=== PATIENT | female | born 2000 | race Caucasian/White ===

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

== ENCOUNTER 2018-01-07 16:05 | Emergency (ER) | payer MEDICAID ==
[~2018-01-07] VITALS: Ht 157.5 cm; Wt 68.5 kg
[2018-01-07 16:05] VITALS: BP_SYST 131
[~2018-01-07 16:05] MED LIST: DILT60TA3 PO; FURO-150 PO
[2018-01-07] MEDS ORDERED: KETOROLAC TROMETHAMINE 60 MG/2 ML VIAL IM ONE (16:30)
[2018-01-07 17:01] VITALS: BP_SYST 121
== END 2018-01-07 17:01 | disposition home or self-care (01) ==
LOC: SED 16:05
DX: N64.4 Mastodynia (principal); R03.0 Elevated blood-pressure reading, without diagnosis of hypertension; J45.909 Unspecified asthma, uncomplicated
CPT/HCPCS: 81025; 93005; 96372; 99283; J1885

== ENCOUNTER 2018-01-19 11:49 | Emergency (ER) | payer MEDICAID ==
[~2018-01-19] VITALS: Ht 157.5 cm; Wt 68.0 kg
[2018-01-19 11:52] VITALS: BP_SYST 127
[2018-01-19 12:45] VITALS: BP_SYST 111
== END 2018-01-19 12:45 | disposition home or self-care (01) ==
LOC: SED 11:49
DX: M77.8 Other enthesopathies, not elsewhere classified (principal); J45.909 Unspecified asthma, uncomplicated; R03.0 Elevated blood-pressure reading, without diagnosis of hypertension
CPT/HCPCS: 99284

== ENCOUNTER 2018-02-24 18:13 | Emergency (ER) | payer MEDICAID ==
[~2018-02-24] VITALS: Ht 157.5 cm; Wt 69.9 kg
[2018-02-24 18:32] VITALS: BP_SYST 94
[2018-02-24] MEDS ORDERED: IBUPROFEN 800 MG TABLET PO ONE (19:15)
[2018-02-24 19:34] VITALS: BP_SYST 100
== END 2018-02-24 19:34 | disposition home or self-care (01) ==
LOC: SED 18:13
DX: S99.922A Unspecified injury of left foot, initial encounter (principal); W23.1XXA Caught, crushed, jammed, or pinched between stationary objects, initial encounter; Y93.89 Activity, other specified; Y92.89 Other specified places as the place of occurrence of the external cause; Y99.8 Other external cause status; J45.909 Unspecified asthma, uncomplicated
CPT/HCPCS: 99284

== ENCOUNTER 2018-07-13 16:36 | Emergency (ER) | payer MEDICAID ==
[~2018-07-13] VITALS: Ht 157.5 cm; Wt 59.0 kg
[2018-07-13 16:48] VITALS: BP_SYST 114
--- NOTE | 2018-07-13 16:52 | NUR ---
Patient triaged and placed in waiting room. VSS and patient appears in no acute distress at this time. Accompanied by self, awaiting available bed, and MD notified of need for MSE.
--- NOTE | 2018-07-13 18:57 | NUR ---
Patient to ER bed 05 to gown for evaluation. Side rails up. Report given to MARCEL JUÁREZ.
--- NOTE | 2018-07-13 18:58 | NUR ---
Pt AAOx4 ambulated into ED c/o L ear pain/congestion x 1 week. Pt recently recovered from a cold. No discharge noted. No other injuries/complaints per pt/noted. Will continue to monitor.
--- NOTE | 2018-07-13 18:59 | NUR ---
ER at bedside examining patient.
[2018-07-13 19:11] VITALS: BP_SYST 109
--- NOTE | 2018-07-13 19:11 | NUR ---
Patient given written and verbal discharge instructions and verbalizes understanding. ER MD DONALDSON discussed with patient the results and treatment provided. Patient in stable condition. ID arm band removed. Rx of CIPRODEX given. Patient educated on pain management and to follow up with PMD. Pain Scale 0. Opportunity for questions provided and answered. Medication side effect fact sheet provided.
== END 2018-07-13 19:11 | disposition home or self-care (01) ==
LOC: SED 16:36
DX: H60.92 Unspecified otitis externa, left ear (principal); J45.909 Unspecified asthma, uncomplicated
CPT/HCPCS: 99283

== ENCOUNTER 2019-02-02 13:14 | Emergency (ER) | payer MEDICAID ==
[~2019-02-02] VITALS: Ht 157.5 cm; Wt 68.0 kg
[2019-02-02 13:40] VITALS: BP_SYST 121
--- NOTE | 2019-02-02 13:45 | NUR ---
Patient triaged and placed in waiting room. VSS and patient appears in no acute distress at this time. Accompanied by family, awaiting available bed, and MD notified of need for MSE.
--- NOTE | 2019-02-02 14:11 | NUR ---
DUTCH Ross evaluating pt at this time.
--- NOTE | 2019-02-02 14:11 | NUR ---
Ambulatory to critical [facility] hospital chair 1
[2019-02-02] MEDS ORDERED: PREDNISONE 20 MG TABLET PO ONE (14:15)
[2019-02-02] MEDS ORDERED: IBUPROFEN 600 MG TABLET PO ONE (14:15)
[2019-02-02] MEDS ORDERED: PENICILLIN G BENZATHINE 1.2 MMU/2 ML SYR IM ONE (14:15)
--- NOTE | 2019-02-02 14:56 | NUR ---
Medicated per [employer] orders. No adverse reactions. Tolerated well
[2019-02-02 15:15] VITALS: BP_SYST 121
--- NOTE | 2019-02-02 15:15 | NUR ---
Patient given written and verbal discharge instructions and verbalizes understanding. ER MD discussed with patient the results and treatment provided. Patient in stable condition. ID arm band removed. Rx Motrin, prednisone given. Patient educated on pain management and to follow up with PMD. Pain Scale 5/10, will continue to rest at home. Opportunity for questions provided and answered. Medication side effect fact sheet provided.
== END 2019-02-02 15:15 | disposition home or self-care (01) ==
LOC: SED 13:14
DX: J02.9 Acute pharyngitis, unspecified (principal); R03.0 Elevated blood-pressure reading, without diagnosis of hypertension; J45.909 Unspecified asthma, uncomplicated
CPT/HCPCS: 86403; 87081; 96372; 99283; J0561; J7512; 36415

== ENCOUNTER 2019-10-17 07:13 | Emergency (ER) | payer MEDICAID ==
[~2019-10-17] VITALS: Ht 157.5 cm; Wt 68.0 kg
[2019-10-17 07:13] VITALS: BP_SYST 113
--- NOTE | 2019-10-17 07:13 | NUR ---
BROUGHT BACK TO BED #4 AND TRIAGED. REPORT GIVEN TO RADHA
--- NOTE | 2019-10-17 07:40 | NUR ---
Patient walked in c/o pain while urinating and frequency x2 weeks. Patient denies nausea and vomiting. Patient states no fever. Patient presents afebrile, AAOx4. Patient has no significant medical history, wear glasses and is hard of hearing on left ear. No acute s/s of acute distress noted. will continue to monitor.
--- NOTE | 2019-10-17 07:45 | NUR ---
ER at bedside examining patient.
[2019-10-17] MEDS ORDERED: SULFAMETHOXAZOLE/TRIMETHOPR DS 1 TABLET PO ONE (08:15)
[2019-10-17] MEDS ORDERED: PHENAZOPYRIDINE HCL 100 MG TABLET PO ONE (08:15)
[2019-10-17 08:47] VITALS: BP_SYST 114
--- NOTE | 2019-10-17 08:47 | NUR ---
Patient given written and verbal discharge instructions and verbalizes understanding. ER MD discussed with patient the results and treatment provided. Patient in stable condition. ID arm band removed. Rx of bactrim and pyridium given. Patient educated on pain management and to follow up with PMD. Pain Scale 0/10. Opportunity for questions provided and answered. Medication side effect fact sheet provided.
== END 2019-10-17 08:47 | disposition home or self-care (01) ==
LOC: SED 07:13
DX: N39.0 Urinary tract infection, site not specified (principal); J45.909 Unspecified asthma, uncomplicated
CPT/HCPCS: 81002; 81025; 99283

== ENCOUNTER → 2022-06-09 | Emergency (ER) | payer OTHER, MEDICAID ==
[~2022-06-09] VITALS: Ht 160 cm; Wt 72.6 kg
[~2022-06-09] MED LIST changes: -DILT60TA3 PO; -FURO-150 PO; +KETOROLAC TROMETHAMINE 30 MG VIAL IVP ONE; +MOM PO; +NACL 0.9% 1,000 ML IV ONE
[2022-06-09 16:36] VITALS: BP_SYST 126
--- NOTE | 2022-06-09 17:40 | NUR ---
TAKEN TO RADIOLOGY FOR TESTING
--- NOTE | 2022-06-09 17:47 | NUR ---
PT PLACED IN ROOM #7 AFTER RADIOLOGY DONE
--- NOTE | 2022-06-09 17:55 | NUR ---
ER at bedside examining patient.
[2022-06-09 18:11] LABS: BILIRUBIN,URINE NEGATIVE (NEGATIVE); CLARITY/URINE CLEAR (CLEAR); COLOR,URINE YELLOW (YELLOW); GLUCOSE,URINE NEGATIVE (NEGATIVE); KETONES,URINE NEGATIVE (NEGATIVE); LEUKOCYTE ESTERASE ,URINE NEGATIVE (NEGATIVE); NITRITE, URINE NEGATIVE (NEGATIVE); PROTEIN URINE NEGATIVE (NEGATIVE); UROBILINOGEN,URINE 0.2 (0.2-1.0)
[2022-06-09 18:12] LABS: BLOOD, URINE TRACE (NEGATIVE)
[2022-06-09 18:17] LABS: BASOPHILS % (AUTO) 0.3 % (0.0-2.0); EOSINOPHILS % (AUTO) 0.2 % (0.0-4.0); HEMATOCRIT 35.1 % (36-48); LYMPHOCYTES # (AUTO) 1.9 K/uL (1.0-5.5); LYMPHOCYTES % (AUTO) 25.7 % (20.5-51.5); MEAN CORPUSCULAR HEMOGLOBIN 31 pg (27-31); MEAN CORPUSCULAR HGB CONC 34 % (32-36); MEAN CORPUSCULAR VOLUME 90 fL (79.0-98.0); MONOCYTES # (AUTO) 0.6 K/uL (0.0-1.0); NEUTROPHILS # (AUTO) 4.9 K/uL (1.8-7.7); NEUTROPHILS % (AUTO) 65.8 % (40.0-70.0); PLATELET COUNT (AUTO) 223 K/uL (130-430); RED CELL DISTRIBUTION WIDTH 12.7 % (9.0-15.0); WHITE BLOOD COUNT (AUTO) 7.5 K/uL (4.8-10.8)
[2022-06-09 18:21] LABS: RBC,URINE 0-3 /HPF (0-3); WBC,URINE 0-3 /HPF (0-3)
[2022-06-09 18:22] LABS: BACTERIA,URINE None Seen /HPF (None Seen); MUCUS,URINE None Seen /LPF (None Seen)
[2022-06-09 18:22] LABS: CALCIUM 9.6 mg/dL (8.4-11.0); CREATININE 0.69 mg/dL (0.55-1.30); POTASSIUM 3.7 mmol/L (3.5-5.1)
[2022-06-09 18:27] LABS: ALBUMIN 4.1 g/dL (3.4-4.8); TOTAL BILIRUBIN 0.1 mg/dL (0.0-1.0)
--- NOTE | 2022-06-09 19:00 | NUR ---
Patient given written and verbal discharge instructions and verbalizes understanding. ER MD discussed with patient the results and treatment provided. Patient in stable condition. ID arm band removed. IV catheter removed intact and dressing applied, no active bleeding. Patient educated on pain management and to follow up with PMD. Pain Scale . Opportunity for questions provided and answered. Medication side effect fact sheet provided.
[2022-06-09 19:04] VITALS: BP_SYST 126
== END | disposition home or self-care (01) ==
LOC: SED 16:25
DX: K59.00 Constipation, unspecified (principal); R10.31 Right lower quadrant pain; J45.909 Unspecified asthma, uncomplicated; Z79.899 Other long term (current) drug therapy
CPT/HCPCS: 99284; 74176; 96374; 96361; 80053; 81000; 85025; 87040; 36415; 76376; 81025; J1885; J7030